=== PATIENT | male | born 1955 | race Caucasian/White ===

== ENCOUNTER 2017-12-11 05:00 | Emergency (ER) | payer MEDICAID ==
[2016-10-16 14:56] VITALS: BMI 32.0
[~2017-12-11 05:00] MED LIST: ANUSOL-HC25 MG RC; ATIVAN1 MG PO; ELIQUIS2.5 MG PO; HYDROCODONE-APA1 TAB PO; LEXAPRO20 MG PO; MS CONTIN15 MG PO; OXYCODONE HCL5 MG PO; PEPCID20 MG PO
== END 2017-12-11 06:33 | disposition home or self-care (01) ==
LOC: D.ER 05:00
DX: S39.012A Strain of muscle, fascia and tendon of lower back, initial encounter (principal); W19.XXXA Unspecified fall, initial encounter; Y93.89 Activity, other specified; Y92.012 Bathroom of single-family (private) house as the place of occurrence of the external cause; M25.561 Pain in right knee

== ENCOUNTER 2020-03-04 13:05 | Emergency (ER) | payer MEDICAID, MEDICARE ==
[2016-10-16 14:56] VITALS: Ht 172.7 cm; Wt 90.9 kg
[~2020-03-04] VITALS: Ht 172.7 cm; Wt 90.9 kg
[2020-03-04 13:07] VITALS: BP 124/97
[2020-03-04 13:26] LABS: BASOPHILS 0.2 % (0-2); EOSINOPHILS 0.4 % (0-7); HEMATOCRIT 42.1 % (42.0-54.0); HEMOGLOBIN 14.2 g/dL (13.5-17.5); IMMATURE GRANULOCYTES 0.2 % (0-5); LYMPHOCYTES 14.1 % (15-50); MCH 30.7 pg (26.0-34.0); MCHC 33.7 g/dL (31.0-37.0); MCV 91.1 fL (80.0-100.0); MEAN PLATELET VOLUME 9.4 fL (7.4-10.4); MONOCYTES 9.3 % (2-11); NEUTROPHILS 75.8 % (40-80); RBC 4.62 10x6/uL (4.20-6.10); RDW 13.2 % (11.5-14.5); WBC 9.7 10x3/uL (4.8-10.8)
[2020-03-04 13:27] LABS: PLATELET COUNT 234 10x3/uL (130-400)
[2020-03-04 13:41] LABS: ANION GAP 12.3 mmol/L (8-16); CALCIUM 8.8 mg/dL (8.5-10.1); CARBON DIOXIDE 25.1 mmol/L (21.0-32.0); CREATININE - SERUM 1.1 mg/dL (0.6-1.3); POTASSIUM - SERUM 3.4 mmol/L (3.5-5.1)
[2020-03-04 13:43] LABS: ALBUMIN 3.7 g/dL (3.4-5.0); BILIRUBIN - TOTAL 0.36 mg/dL (0.2-1.3); PROTEIN - SERUM 7.2 g/dL (6.4-8.2)
[2020-03-04 14:07] LABS: APTT 21.4 SECONDS (22.8-39.4); INR 1.04 (0.85-1.17); PROTIME 13.5 SECONDS (11.6-15.0)
[2020-03-04] MEDS ORDERED: CYCLOBENZAPRINE10 MG PO (15:47)
[2020-03-04] MEDS ORDERED: KEFLEX500 MG PO (15:47)
[2020-03-04] MEDS ORDERED: ACETAMINOPHEN500 M1 PO (15:47)
== END 2020-03-04 16:22 | disposition home or self-care (01) ==
LOC: D.ER 13:05
PROVIDERS: Family Medicine
DX: S01.21XA Laceration without foreign body of nose, initial encounter (principal); Y09 Assault by unspecified means; R51 Headache; M54.2 Cervicalgia; M54.9 Dorsalgia, unspecified; M25.569 Pain in unspecified knee